=== PATIENT | female | born 1950 | race Caucasian/White ===

== ENCOUNTER 2016-08-23 09:24 | Day surgery (SDC) | payer MEDICAID ==
[~2016-08-23 09:24] MED LIST: AMBIEN5 M1 PO; ARIMIDEX1 M1 PO; ASPIR 8181 M1 PO; BENADRYL25 M3 PO; BIPAP; CALCIUM 600 +1 EA12 PO; CETAPHIL MOISTU85 GM TP; CHLORASEPTIC20 ML PO; CYCLOBENZAPRINE10 M1 PO; CYCLOBENZAPRINE5 M1 PO; DAILY MULTIPLE1 EAC2 PO; DUONEB INH; FERROUS SULFAT325 MG PO; HYDROCODON-ACE1 EA15 PO; HYDROCORTISON28.411 TOP; IBUPROFEN200 M2 PO; LASIX20 M1 PO; LASIX40 M1 PO; LEVOTHYROXINE200 MC4 PO; LIDOCAINE1 EACH TOP; LOPRESSOR50 M1 PO; MAGNESIUM OXID400 M1 PO; MELATONIN3 M4 PO; MILK OF MAGNESIA PO; MORPHINE SULFAT3010 PO; NYSTATIN1 EA10 MC; OMEPRAZOLE20 M4 PO; ORGAN-I NR200 M1 PO; OXYGEN; POTASSIUM CHLO20 ME3 PO; PRINIVIL10 M1 PO; PROZAC20 M3 PO; SUPER B COMPLE1 EAC2 PO; SYMBICORT 160-1 PUFF INH; SYNTHROID75 MC1 PO; TESSALON PERLE100 M1 PO; TUMS200 MG PO; TYLENOL325 M2 PO; VITAMIN D32000 UNI3 PO; XALATAN2.5 M1 EACH EYE; ZOFRAN4 M2 PO; [UNRECOGNIZED DRUG - OTHER] TP; [UNRECOGNIZED DRUG - REMARK]
[2016-08-23 11:03] LABS: BASO % 0.7 % (0-2); BASO ABSOLUTE COUNT 0.1 tho/cmm (0.0-0.2); EOS % 3.3 % (0-7); EOSINOPHIL ABSOLUTE COUNT 0.3 tho/cmm (0.0-0.7); HCT-HEMATOCRIT 45.4 % (34.0-49.0); HGB-HEMOGLOBIN 15.2 gm/dl (12.0-15.5); IMMATURE GRANULOCYTES ABSOLUTE 0.02 tho/cmm (0-0.03); IMMATURE GRANULOCYTES PERCENT 0.3 % (0-0.3); LYMPH % 28.2 % (20-45); LYMPH ABSOLUTE COUNT 2.1 tho/cmm (0.8-4.5); MCH (MEAN CORPUSCULAR HGB) 29.7 pg (28.0-32.0); MCHC MEAN CORPUSCULAR HGB CONC 33.5 % (32.0-36.0); MCV (MEAN CELL VOLUME) 88.8 fl (82.0-96.0); MEAN PLATELET VOLUME 9.6 cmc (9.4-12.4); MONO % 9.4 % (0-12); MONOCYTE ABSOLUTE COUNT 0.7 tho/cmm (0.0-1.2); NEUTROPHIL ABSOLUTE COUNT 4.4 tho/cmm (1.6-8.0); NEUTROPHIL-AUTOMATED 4.4 tho/cmm (1.6-8.0); NEUTROPHILS % 58.1 % (40-80); PLATELET COUNT 371 tho/cmm (150-450); RED BLOOD COUNT 5.11 mil/cmm (4.00-5.20); RED CELL DISTRIBUTION WIDTH 14.2 % (12.4-16.4); WHITE BLOOD COUNT 7.5 tho/cmm (4.0-10.0)
[2016-08-23 11:14] LABS: ANION GAP 11 mmol/L (0-20); BLOOD UREA NITROGEN 25 mg/dl (6-24); CALCIUM 9.2 mg/dl (8.5-10.5); CARBON DIOXIDE-VENOUS 29 mmol/L (22-32); CHLORIDE 107 mmol/l (96-110); GLUCOSE 101 mg/dL (70-110); POTASSIUM 4.2 mmol/L (3.7-5.1); SODIUM 143 mmol/L (135-145); eGFR VALUE FOR BLACK >90 mL/Min
== END 2016-08-23 15:45 ==
LOC: SRG 09:24 → SHSB 09:25 → ORE 11:42 → PACU 12:54 → SHSB 13:20
PROVIDERS: Anesthesiology
PROC: 0CDXXZ1 Extraction of Lower Tooth, Multiple, External Approach (ICD-10-PCS; principal; 2016-08-23)
PROC: 0CDWXZ2 Extraction of Upper Tooth, All, External Approach (ICD-10-PCS; 2016-08-23)
DX: K08.409 Partial loss of teeth, unspecified cause, unspecified class (principal); I10 Essential (primary) hypertension; E78.5 Hyperlipidemia, unspecified; M19.90 Unspecified osteoarthritis, unspecified site; M81.0 Age-related osteoporosis without current pathological fracture; G89.29 Other chronic pain; E66.9 Obesity, unspecified; E03.9 Hypothyroidism, unspecified; F32.9 Major depressive disorder, single episode, unspecified; K21.9 Gastro-esophageal reflux disease without esophagitis; Z87.891 Personal history of nicotine dependence; Z79.899 Other long term (current) drug therapy; Z79.891 Long term (current) use of opiate analgesic; G47.33 Obstructive sleep apnea (adult) (pediatric); Z96.653 Presence of artificial knee joint, bilateral; Z86.73 Personal history of transient ischemic attack (TIA), and cerebral infarction without residual deficits; Z98.890 Other specified postprocedural states; Z99.89 Dependence on other enabling machines and devices; Z85.3 Personal history of malignant neoplasm of breast